=== PATIENT | male | born 1935 | race Caucasian/White ===

== ENCOUNTER 2020-08-02 20:44 | Emergency (ER) | payer OTHER, MEDICAID, SELFPAY ==
[~2020-08-02] VITALS: Ht 175.3 cm; Wt 67.1 kg
[2020-08-02 21:10] VITALS: Ht 175.3 cm; Wt 67.1 kg
[2020-08-02 21:48] LABS: BASOPHIL % 0.3 % (0-2); PLATELET COUNT 303 x10^3mcL (130-400); RED CELL DISTRIBUTION WIDTH 12.3 % (11.5-14.5)
[2020-08-02 22:05] LABS: CALCIUM 7.8 mg/dL (8.5-10.1); CARBON DIOXIDE 27.2 mmol/L (21-32); CHLORIDE SERUM 98 mmol/L (98-107); GLUCOSE SERUM 99 mg/dL (74-106); POTASSIUM SERUM 3.8 mmol/L (3.5-5.1); SODIUM SERUM 129 mmol/L (136-145)
[2020-08-02 22:11] LABS: ALBUMIN 2.9 g/dL (3.4-5.0); ALKALINE PHOSPHATASE 55 U/L (46-116); ALT/SGPT 76 U/L (16-63); AST/SGOT 40 U/L (15-37); BILIRUBIN TOTAL 0.6 mg/dL (0.20-1.00); LIPASE 88 IU/L (73-393); TOTAL PROTEIN, SERUM 6.2 g/dL (6.4-8.2)
[2020-08-02 23:22] VITALS: BP 130/87
== END 2020-08-02 23:22 | disposition home or self-care (01) ==
LOC: ED 20:44
PROVIDERS: Student in an Organized Health Care Education/Training Program
DX: J12.9 Viral pneumonia, unspecified (principal); R11.2 Nausea with vomiting, unspecified; I10 Essential (primary) hypertension; K21.9 Gastro-esophageal reflux disease without esophagitis; Z98.890 Other specified postprocedural states
CPT/HCPCS: Q0162